=== PATIENT | female | born 1955 | race Caucasian/White ===

== ENCOUNTER 2018-01-07 15:34 | Emergency (ER) | payer OTHER ==
[~2018-01-07] VITALS: Ht 165.1 cm; Wt 49.9 kg
[~2018-01-07 15:34] MED LIST: CITA20 PO; ENBR50IN3 SC; HYDR-3113 PO; MELO15 PO; META800 PO; XANA0.5T PO
[2018-01-07 15:41] VITALS: BP 161/82; PULSE 84; RESP 16; TEMP 98.6; O2SAT 96
[2018-01-07] MEDS ORDERED: CITA40TA4 PO (15:57)
[2018-01-07] MEDS ORDERED: VITA100021 SL (15:57)
[2018-01-07] MEDS ORDERED: VITA100064 PO (15:57)
[2018-01-07] MEDS ORDERED: MELO7.5T27 PO (15:57)
[2018-01-07] MEDS ORDERED: XANA1TAB2 PO (15:57)
[2018-01-07] MEDS ORDERED: FISHCAP4 PO (15:57)
[2018-01-07] MEDS ORDERED: MULTTAB67 PO (15:57)
[2018-01-07] MEDS ORDERED: ASPI81CH6 CHEW (15:57)
[2018-01-07] MEDS ORDERED: TRAM50TA PO (15:57)
[2018-01-07] MEDS ORDERED: TRAZ100T10 PO (15:57)
[2018-01-07] MEDS ORDERED: ORPHENADRINE INJ 60 MG/2 ML AMP IM ONE (16:30)
[2018-01-07] MEDS ORDERED: KETOROLAC TROMETHAMINE 60 MG/2 ML (IM) VIAL IM ONE (16:30)
[2018-01-07] MEDS ORDERED: ROBA750T PO (16:31)
--- NOTE | 2018-01-07 16:32 | PD ---
HPI Chief Complaint: Musculoskeletal Complaint Time Seen by Provider: 16:19 Travel History International Travel<30 days: No Contact w/Intl Traveler<30days: No Traveled to known affect area: No History of Present Illness HPI 62-year-old female presents to the emergency department for evaluation of left shoulder pain that has been ongoing for 2 years. She states that she needs a shoulder replacement surgery. Her primary care physician, Dr. Cannon, has prescribed meloxicam and tramadol. However, she states it is not helping the pain. She also states that she has had joint injections in the past which also do not help. The patient states the pain is worsening. Movement exacerbates the pain. Patient states she has an upcoming appointment with an orthopedist. No fevers or chills. No other symptoms or complaints. Moderate severity. PFSH Past Medical History Arthritis: Yes Anxiety: Yes Depression: Yes Diminished Hearing: No Medical other: Yes (factor 5) Musculoskeletal: Yes (needs left shoulder replaced) Influenza Vaccination: Yes ?: Not Past Surgical History Hysterectomy: Yes Social History Alcohol Use: Yes (SOCIAL) Tobacco Use: No Substance Use: No Allergies-Medications (Allergen,Severity, Reaction): Coded Allergies: Sulfa (Sulfonamide Antibiotics) (Unverified Allergy, Mild, SWELLING, ) Reported Meds & Prescriptions Reported Meds & Active Scripts Active Reported Fish Oil + D3 (Fish Oil-Cholecalciferol) 1,200-1,000 Mg-Unit Cap 1 Cap PO DAILY Vitamin B-12 (Cyanocobalamin) 1,000 Mcg Subl 1,000 Mcg SL DAILY Vitamin D3 (Cholecalciferol) 1,000 Unit Tab 1,000 Units PO DAILY Aspirin Low Dose (Aspirin) 81 Mg Chew 81 Mg CHEW DAILY Multiple Vitamin 1 Tab 1 Tab PO DAILY Citalopram (Citalopram Hydrobromide) 40 Mg Tab 40 Mg PO DAILY Meloxicam 7.5 Mg Tab 7.5 Mg PO DAILY Xanax (Alprazolam) 1 Mg Tab 1 Mg PO BID PRN Tramadol (Tramadol HCl) 50 Mg Tab 50 Mg PO Q6H PRN Trazodone (Trazodone HCl) 100 Mg Tablet 100 Mg PO HS Review of Systems Except as stated in HPI: all other systems reviewed are Neg Physical Exam Narrative GENERAL: Well-nourished, well-developed female patient, ambulatory. Afebrile. SKIN: Focused skin assessment warm/dry. HEAD: Normocephalic. Atraumatic. EYES: No scleral icterus. No injection or drainage. NECK: Supple, trachea midline. No JVD or lymphadenopathy. CARDIOVASCULAR: Regular rate and rhythm without murmurs, gallops, or rubs. Left radial pulses 2+. RESPIRATORY: Breath sounds equal bilaterally. No accessory muscle use. GASTROINTESTINAL: Abdomen soft, non-tender, nondistended. MUSCULOSKELETAL: No cyanosis, or edema. Patient has tenderness over left shoulder with reduced range of motion due to pain. BACK: Nontender without obvious deformity. No CVA tenderness. Data Data Last Documented VS Vital Signs Date Time Temp Pulse Resp B/P (MAP) Pulse Ox O2 Delivery O2 Flow Rate FiO2 01/07/18 15:41 98.6 84 16 161/82 (108) 96 Orders Orders Ketorolac Inj (Toradol Inj) (01/07/18 16:30) Orphenadrine Inj (Norflex Inj) (01/07/18 16:30) MDM Medical Decision Making Medical Screen Exam Complete: Yes Emergency Medical Condition: Yes Medical Record Reviewed: Yes Differential Diagnosis Chronic pain versus arthritis versus muscle strain Narrative Course 62-year-old female presents to the emergency department for evaluation of chronic left shoulder pain for 2 years. She states that she needs a shoulder replacement. My attending physician, Dr. Cannon, who is also her primary care physician agrees with plan and disposition. Patient is given Toradol 60 mg IM, Norflex 60 mg IM. She'll be discharged with a prescription for Robaxin. She is continue meloxicam and tramadol as needed for pain. The patient was discharged in stable condition with instructions, including return instructions and follow up instructions. Diagnosis Primary Impression: Chronic shoulder pain Qualified Codes: M25.512 - Pain in left shoulder; G89.29 - Other chronic pain Referrals: Primary Care Physician call for appointment Patient Instructions: General Instructions, Shoulder Pain (ED) Additional Instructions: Continue meloxicam and tramadol as directed by your primary care physician. Take Robaxin as instructed as needed. Follow-up with your orthopedist. Return to the emergency department for any acute worsening of symptoms. Med/Other Pt SpecificInfo: Prescription(s) given Scripts Methocarbamol (Robaxin) 750 Mg Tab 750 MG PO QID Y for MUSCLE SPASM, #21 TAB 0 Refills Prov: Tiki Ro 01/07/18 Disposition: 01 DISCHARGE HOME Condition: Stable Tiki Ro Jan 07, 2018 16:31
== END 2018-01-07 16:49 | disposition home or self-care (01) ==
LOC: PHEFT 15:34
DX: M25.512 Pain in left shoulder (principal); G89.29 Other chronic pain; M19.90 Unspecified osteoarthritis, unspecified site; Z88.2 Allergy status to sulfonamides
CPT/HCPCS: 96372; 99283; J1885; J2360

== ENCOUNTER 2018-02-19 10:14 | Emergency (ER) | payer OTHER ==
[~2018-02-19 10:14] MED LIST changes: +ASPI81CH6 CHEW; -CITA20 PO; +CITA40TA4 PO; -ENBR50IN3 SC; +FISHCAP4 PO; -HYDR-3113 PO; -MELO15 PO; +MELO7.5T27 PO; -META800 PO; +MULTTAB67 PO; +ROBA750T PO; +TRAM50TA PO; +TRAZ100T10 PO; +VITA100021 SL; +VITA100064 PO; -XANA0.5T PO; +XANA1TAB2 PO
[2018-02-19 10:21] VITALS: BP 148/91; PULSE 83; RESP 20; TEMP 98.2; O2SAT 97
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
[2018-02-19] MEDS ORDERED: MOBI15TA PO (12:54)
== END 2018-02-19 13:08 | disposition home or self-care (01) ==
LOC: PHEFT 10:14
DX: S09.90XA Unspecified injury of head, initial encounter (principal); S16.1XXA Strain of muscle, fascia and tendon at neck level, initial encounter; S40.012A Contusion of left shoulder, initial encounter; S20.219A Contusion of unspecified front wall of thorax, initial encounter; M19.90 Unspecified osteoarthritis, unspecified site; F41.9 Anxiety disorder, unspecified; F32.9 Major depressive disorder, single episode, unspecified; M50.31 Other cervical disc degeneration, high cervical region; Y04.2XXA Assault by strike against or bumped into by another person, initial encounter
CPT/HCPCS: 70450; 71045; 72125; 73030; 99284